=== PATIENT | male | born 1970 | race Two or more races ===

== ENCOUNTER 2021-07-25 17:04 | Emergency (ER) | payer MEDICAID ==
--- NOTE | 2021-07-25 17:30 | ED Physician Documentation ---
PD HPI UPPER EXT INJURY - Stated complaint Stated Complaint: LAFT HAND LAC - Chief complaint Chief Complaint: Laceration - History obtained from History obtained from: Patient - Additonal information Additional information: Right-handed gentleman with unknown tetanus status cut the second through fourth fingers of his left hand on a sharp edge just prior to arrival. No other injuries. Review of Systems Ten Systems: 10 systems reviewed and negative Constitutional: reports: Reviewed and negative Eyes: reports: Reviewed and negative Nose: reports: Reviewed and negative Throat: reports: Reviewed and negative Cardiac: reports: Reviewed and negative Respiratory: reports: Reviewed and negative PD PAST MEDICAL HISTORY - Present Medications Home Medications: Ambulatory Orders Medication Instructions Recorded Confirmed cephALEXin [Keflex] 500 mg PO Q6H #28 cap 07/25/21 - Allergies Allergies/Adverse Reactions: Allergies Allergy/AdvReac Type Severity Reaction Status Date / Time No Known Drug Allergies Allergy Verified 07/25/21 17:21 PD ED PE NORMAL - Vitals Vital signs reviewed: Yes - General General: Alert and oriented X 3, No acute distress - Extremities Extremities: Other (He has lacerations near the PIPs of the second through fourth fingers. He is unable to bend the fourth finger. He has normal neurovascular status at the tips of each digit.) - Neuro Neuro: Alert and oriented X 3, Normal speech Results - Vitals Vitals: Vital Signs - 24 hr 07/25/21 07/25/21 17:17 20:18 Temperature 36.5 C 37.4 C Heart Rate 81 65 Respiratory 16 18 Rate Blood Pressure 151/89 H 139/85 H O2 Saturation 99 98 Oxygen O2 Source Room air Procedures - Laceration (location) L hand 2nd-4th finger Length in cm: 5 Wound type: Linear, Into muscle Neurovascular status: Sensory intact, Vascular intact Tendon involvement: Tendon Injury (He has clear flexor tendon lacerations of the second and third digits) Anesthesia: Lidocaine 1% Wound preparation: Betadine, Irrigated copiously NS Skin layer closure: Nylon, Interrupted, Size #-0 - enter number (4-0) Other: Patient tolerated well, No complications, Neurovascular intact, Tetanus booster given - Splint (location) LUE Splint applied by: Tech Type of splint: Fiberglass, Short arm Other: Patient tolerated well, No complications, Neurovascular intact PD MEDICAL DECISION MAKING - ED course ED course: 51-year-old gentleman has laceration to the palmar surfaces of the second third and fourth digits. It is clear that he has significant tendon lacerations of the flexor tendons of the second and third digits. He was irrigated and skin was closed and placed in a splint. [facility] was called for arrangement for follow-up with the hand surgery clinic. I spoke with the transfer center at [facility] and they will arrange for him to be seen in the hand clinic for follow-up of his tendon injuries. There was some delay to this. Departure - Departure Disposition: Home, Self Care Clinical Impression: Laceration, Tendon laceration Condition: Good Record reviewed to determine appropriate education?: Yes Instructions: ED Laceration Tendon Prescriptions: cephALEXin [Keflex] 500 mg PO Q6H #28 cap Comments: You were seen tonight for lacerations of the second through fourth digits of the left hand and the second and third digit clearly have a tendon laceration of the flexor tendons. We have closed the skin and put you in a splint. [facility] hand clinic should call you next [email or web address]. If you have not heard from them by Wednesday, call them at [phone] Keep the splint on and dry until then.
[2021-07-25] MEDS ORDERED: LIDOCAINE-MPF 2% 5 ML VIAL ONE (17:44)
[2021-07-25] MEDS: lidocaine 1% 20 ML MDV SUBQ ONE (18:40)
[2021-07-25] MEDS: TETANUS/DIPHTHERIA/PERTUSSIS 0.5 ML SYRINGE IM ONE (18:41)
[2021-07-25] MEDS: cephALEXin 250 MG CAPSULE PO STA (18:42)
[2021-07-25 20:19] VITALS: BP 139/85
== END 2021-07-25 21:15 | disposition home or self-care (01) ==
LOC: ED 17:04
DX: S66.121A Laceration of flexor muscle, fascia and tendon of left index finger at wrist and hand level, initial encounter (principal); S66.123A Laceration of flexor muscle, fascia and tendon of left middle finger at wrist and hand level, initial encounter; S66.125A Laceration of flexor muscle, fascia and tendon of left ring finger at wrist and hand level, initial encounter; W26.9XXA Contact with unspecified sharp object(s), initial encounter; Z23 Encounter for immunization; Z71.85 Encounter for immunization safety counseling
CPT/HCPCS: 12013; 29125; 90471; 90715; 99283; A9270